=== PATIENT | female | born 1985 | race Caucasian/White ===

== ENCOUNTER 2020-11-08 11:05 | Outpatient (CLI) | payer OTHER ==
[2020-11-08 16:50] LABS: BILIRUBIN,URINE NEGATIVE (NEGATIVE); CLARITY,URINE CLEAR (CLEAR); GLUCOSE, URINE (UA) NEGATIVE (NEGATIVE); KETONES,URINE (UA) NEGATIVE (NEGATIVE); LEUKOCYTE ESTERASE, URINE NEGATIVE (NEGATIVE); NITRITE,URINE NEGATIVE (NEGATIVE); OCCULT BLOOD,URINE NEGATIVE (NEGATIVE); PH,URINE 5.5 PH (5.0-7.5); PROTEIN,URINE NEGATIVE (NEGATIVE); UROBILINOGEN,URINE 0.2 (NORMAL) E.U./dL (NORMAL)
[2020-11-08 17:22] LABS: BACTERIA,URINE Few /HPF (None Seen); RBC,URINE None Seen /HPF (0-5); SQUAMOUS EPITHELIAL CELL,UR FEW Squamous (<= Few); WBC,URINE 0-3 /HPF (0-5)
[2020-11-08 20:25] LABS: BACTERIAL VAGINOSIS DNA NEGATIVE (NEGATIVE); CANDIDA GLABRATA DNA NEGATIVE (NEGATIVE); CANDIDA GROUP DNA NEGATIVE (NEGATIVE); CANDIDA KRUSEI DNA NEGATIVE (NEGATIVE); TRICHOMONAS VAGINALIS DNA NEGATIVE (NEGATIVE)
== END 2020-11-08 11:06 | disposition home or self-care (01) ==
LOC: LAB 11:05
PROVIDERS: ATTEND Obstetrics & Gynecology
DX: R35.0 Frequency of micturition (principal); N89.8 Other specified noninflammatory disorders of vagina
CPT/HCPCS: 81001; 87086; 87661; 87801

== ENCOUNTER 2021-01-10 12:45 | Outpatient (CLI) | payer OTHER ==
[2021-01-10 13:56] LABS: HCT - HEMATOCRIT 34.8 % (37.0-47.0); HGB - HEMOGLOBIN 11.7 g/dL (12.0-16.0); MEAN CORPUSCULAR HEMOGLOBIN 29.1 pg (27.0-31.0); MEAN CORPUSCULAR HGB CONC 33.6 g/dL (32.0-36.0); MEAN CORPUSCULAR VOLUME 86.6 fL (81.0-99.0); MEAN PLATELET VOLUME 9.7 fL (7.9-10.8); RED BLOOD COUNT 4.02 10^6/uL (4.20-5.40); RED CELL DISTRIBUTION WIDTH 12.6 % (12.0-15.0); WHITE BLOOD COUNT 9.2 x10^3/uL (4.8-10.8)
== END 2021-01-10 12:46 | disposition home or self-care (01) ==
LOC: LAB 12:45
PROVIDERS: ATTEND Nurse Practitioner Obstetrics & Gynecology
DX: Z34.90 Encounter for supervision of normal pregnancy, unspecified, unspecified trimester (principal); Z36.89 Encounter for other specified antenatal screening
CPT/HCPCS: 36415; 82950; 85027

== ENCOUNTER 2021-01-15 08:01 | Outpatient (CLI) | payer OTHER ==
[2021-01-15 08:32] LABS: GTT GLUCOSE,FASTING 90 mg/dL (70-100)
== END 2021-01-15 08:02 | disposition home or self-care (01) ==
LOC: LAB 08:01
PROVIDERS: ATTEND Nurse Practitioner Obstetrics & Gynecology
DX: O99.810 Abnormal glucose complicating pregnancy (principal)
CPT/HCPCS: 36415; 82951; 82952

== ENCOUNTER 2021-02-07 08:00 | Outpatient (CLI) | payer OTHER ==
[2021-02-07 15:51] LABS: BILIRUBIN,URINE NEGATIVE (NEGATIVE); GLUCOSE, URINE (UA) NEGATIVE (NEGATIVE); KETONES,URINE (UA) NEGATIVE (NEGATIVE); LEUKOCYTE ESTERASE, URINE NEGATIVE (NEGATIVE); NITRITE,URINE NEGATIVE (NEGATIVE); OCCULT BLOOD,URINE NEGATIVE (NEGATIVE); PROTEIN,URINE NEGATIVE (NEGATIVE); UROBILINOGEN,URINE 0.2 (NORMAL) E.U./dL (NORMAL)
[2021-02-07 15:59] LABS: BACTERIA,URINE Rare /HPF (None Seen); CLARITY,URINE CLEAR (CLEAR); RBC,URINE 0-5 /HPF (0-5); SQUAMOUS EPITHELIAL CELL,UR FEW Squamous (<= Few); WBC,URINE 0-3 /HPF (0-5)
== END 2021-02-07 23:59 | disposition home or self-care (01) ==
LOC: LAB.WC 08:00
PROVIDERS: ATTEND Nurse Practitioner Obstetrics & Gynecology
DX: R35.0 Frequency of micturition (principal)
CPT/HCPCS: 81001; 87086

== ENCOUNTER 2021-02-14 09:56 | Outpatient (CLI) | payer OTHER ==
[2021-02-14 10:13] LABS: HCT - HEMATOCRIT 36.6 % (37.0-47.0); HGB - HEMOGLOBIN 12.7 g/dL (12.0-16.0); MEAN CORPUSCULAR HEMOGLOBIN 29.7 pg (27.0-31.0); MEAN CORPUSCULAR HGB CONC 34.7 g/dL (32.0-36.0); MEAN CORPUSCULAR VOLUME 85.5 fL (81.0-99.0); MEAN PLATELET VOLUME 10.2 fL (7.9-10.8); RED BLOOD COUNT 4.28 10^6/uL (4.20-5.40); RED CELL DISTRIBUTION WIDTH 12.9 % (12.0-15.0); WHITE BLOOD COUNT 8.7 x10^3/uL (4.8-10.8)
[2021-02-14 11:23] LABS: CREATININE,URINE 76.3 mg/dL; PROTEIN/CREATININE RATIO,URINE 0.1 (<=0.2)
== END 2021-02-14 09:57 | disposition home or self-care (01) ==
LOC: LAB 09:56
PROVIDERS: ATTEND Nurse Practitioner Obstetrics & Gynecology
DX: R51.9 Headache, unspecified (principal)
CPT/HCPCS: 36415; 82570; 84156; 85027

== ENCOUNTER 2021-03-12 08:00 | Outpatient (CLI) | payer OTHER | END 2021-03-12 23:59 | disposition home or self-care (01) | LOC: LAB.WC 08:00 | PROVIDERS: ATTEND Advanced Practice Midwife | DX: Z34.90 Encounter for supervision of normal pregnancy, unspecified, unspecified trimester (principal); Z36.85 Encounter for antenatal screening for Streptococcus B | CPT/HCPCS: 87797 ==

== ENCOUNTER 2021-03-18 15:03 | Inpatient (IN) | payer OTHER ==
[2021-03-18 15:39] LABS: BASOPHILS % (AUTO) 0.2 %; EOSINOPHILS # (AUTO) 0.1 10^3/uL (0.0-0.7); EOSINOPHILS % (AUTO) 0.5 %; HCT - HEMATOCRIT 39.2 % (37.0-47.0); HGB - HEMOGLOBIN 13.5 g/dL (12.0-16.0); LYMPHOCYTES # (AUTO) 2.7 10^3/uL (1.5-3.5); LYMPHOCYTES % (AUTO) 29.3 %; MEAN CORPUSCULAR HEMOGLOBIN 29.2 pg (27.0-31.0); MEAN CORPUSCULAR HGB CONC 34.4 g/dL (32.0-36.0); MEAN CORPUSCULAR VOLUME 84.7 fL (81.0-99.0); MONOCYTES # (AUTO) 0.6 10^3/uL (0.0-1.0); MONOCYTES % (AUTO) 6.9 %; NEUTROPHILS # (AUTO) 5.7 10^3/uL (1.5-6.6); NEUTROPHILS % (AUTO) 62.8 %; PLT - PLATELET COUNT 257 10^3/uL (130-450); RED BLOOD COUNT 4.63 10^6/uL (4.20-5.40); RED CELL DISTRIBUTION WIDTH 13.6 % (12.0-15.0); WHITE BLOOD COUNT 9.1 x10^3/uL (4.8-10.8)
[2021-03-18 16:05] LABS: CREATININE,URINE 122.9 mg/dL; PROTEIN/CREATININE RATIO,URINE 0.1 (<=0.2)
[2021-03-18 16:05] LABS: ALBUMIN 3.3 g/dL (3.2-5.5); ALBUMIN/GLOBULIN RATIO 0.8 (1.0-2.2); BILIRUBIN,TOTAL 0.2 mg/dL (0.2-1.0); CALCIUM 8.8 mg/dL (8.5-10.3); CREATININE 0.5 mg/dL (0.4-1.0); POTASSIUM 3.5 mmol/L (3.5-5.0); TOTAL PROTEIN 7.2 g/dL (6.7-8.2)
[2021-03-18] MEDS ORDERED: NIFEdipine 10 MG CAPSULE PO PRN (16:36)
[2021-03-18] MEDS ORDERED: TRANEXAMIC ACID IN NACL 1,000 MG/100 ML BAG IV PRN (16:36)
[2021-03-18] MEDS ORDERED: hydrALAZINE INJ 20 MG/ML VIAL IVP PRN ×2 (16:36)
[2021-03-18] MEDS ORDERED: METOCLOPRAMIDE 10 MG/2 ML VIAL IVP PRN (16:36)
[2021-03-18] MEDS ORDERED: miSOPROStoL 200 MCG TABLET BC PRN (16:36)
[2021-03-18] MEDS ORDERED: CARBOPROST TROMETHAMINE 250 MCG/ML AMP IM PRN (16:36)
[2021-03-18] MEDS ORDERED: ONDANSETRON 4 MG/2 ML VIAL IVP PRN (16:36)
[2021-03-18] MEDS ORDERED: LIDOCAINE-MPF 1% 30 ML VIAL ID PRN (16:36)
[2021-03-18] MEDS ORDERED: METHYLERGONOVINE 0.2 MG/ML VIAL IM PRN (16:36)
[2021-03-18] MEDS ORDERED: LABETALOL 20 MG/4 ML SYRINGE IVP PRN ×3 (16:36)
[2021-03-18] MEDS ORDERED: OXYTOCIN 10 UNIT/ML VIAL IM PRN (16:36)
[2021-03-18] MEDS ORDERED: SODIUM CHLORIDE FLUSH 0.9% 10 ML SYRINGE IVP PRN (16:36)
--- NOTE | 2021-03-18 16:47 | HISTORY & PHYSICAL EXAMINATION ---
Admit History - Visit Reason Visit Reason: Other (Gestational Hypertension with severe range blood pressures) - : 1 Parity: 0 Premature: 0 Ectopic: 0 : 0 Care: positive: Other ([facility]) Risk/History: positive: Other (Gestational Hypertension) Complications This : positive: None Smoking Status: Never smoker - Mother's Labs Mother's Blood Type: positive: B Mother's RH: positive: Positive GBS: positive: Group B Step Negative Rubella Status: positive: Non-immune - Other Maternal History Other Maternal History: -36yo at 37.5wks gestation who presents to Labor and Delivery for pre- induction cervical ripening secondary to new onset Gestational Hypertension with severe range blood pressures -Reports movement -Denies ctx/VB/LOF - care with [facility] which has been adequate - Complications *Gestational Hypertension with severe range pressures ---denies SAUCEDA, RUQ pain, or visual changes ---P:C ratio: 0.1 ---ALT/AST wnl ---CBC wnl -Dating Criteria LMP 04/03/2021 Initial U/S: @ 10.5wks gestation c/w LMP dating performed by [facility]. -OB Hx *G1: current -Medications * vitamin-daily -Allergies *NKDA -Medical History *Non contributory -Surgical History *Colposcopy 2009 *[place] Teeth Extraction -Family History *Non contributory -Social History *Non contributory - Labs, Immunizations, and Findings LMP 04/03/2021 Initial U/S: @ 10.5wks gestation c/w LMP dating performed by [facility]. SMA positive- partner's result pending, referred to [facility], notes pending. B pos/antibody negative Rubella NON-IMMUNE - MMR VZV: immune Genetic testing: [place] neg, CF neg, SMA positive (per pt, records being requested) Early screening U/S completed by [facility] @ 17wks: WNL. Anterior placenta, no previa. 3VC. EFW 97%. DESEAN WNL. - incomplete visualization due to early gestation. FAS - completed by [facility] - Detailed FAS with [facility] WNL. Anterior placenta, no preiva. DESEAN WNL. Size c/w dating. 3VC. Glucola 1hr 161 3hr pass 90 146,126,118 Influenza: recieved outside clinic TDAP 01/10/2021 GBS at 36.6 weeks- Negative HSV: denies in self and partner Breast pump Rx 01/10/2021 MOD: Anticipate ; It's a GIRL! Kim Kolby; wait and see - hoping to have unmedicated delivery; ; [employer] active duty pp contraception: POP's pap: 09/10/2020 neg - HPV neg (hx ASCUS paps) -SVE- closed/80%/-1/mod/mid -Vertex by Rojas -EFW by iggy's 6.5# - Physical Exam: Normocephalic, atraumatic Heart RRR w/o murmur Lungs clear and equal bilaterally Abdomen gravid, soft, nontender Edema- none Psych- wnl -FHTs per flowsheet -Assessment *36yo at 37.5wks gestation present for induction of labor secondary to new onset Gestational Hypertension with severe range blood pressures *Feliz Score 7- requires cervical ripening * Heart Tones- Category I -Plan *Admit to Inpatient *Cervical ripening with Misoprostol *Hypertensive protocol initiated *Monitoring- Continuous *Comfort measures available- position changes, whirlpool tub, fentanyl, and epidural per maternal preference *Diet/Activity- per maternal preference *Anticipate Review of Systems - All Other Systems All Other Systems: reports: Reviewed and negative Physical - Abdominal Exam Vital Signs: Temp Pulse Resp BP Pulse Ox 37.2 C 102 H 16 161/101 H 98 03/18/21 15:17 03/18/21 16:14 03/18/21 16:14 03/18/21 16:14 03/18/21 16:14 Contraction Frequency (min/apart): irregular Contraction Intensity: positive: Mild Uterine Resting Tone: positive: Soft - Monitoring Heart Rate Baseline: 135 Strip Review: positive: Category I (moderate variability, 15x15 accels, no decels) - Presentation Presentation: positive: Vertex - Vaginal Exam Membranes: positive: Membranes intact Dilation (in cm): 0 Effacement (%): 80 Station: positive: -1 Cervical Position: positive: Midposition Plan for Labor - Plan For Labor I expect patient to be DC'd or transferred within 96 hours.: Yes
[2021-03-18] MEDS: SODIUM CHLORIDE FLUSH 0.9% 10 ML SYRINGE IVP SCH ×2 (17:15→22:41)
[2021-03-18] MEDS: miSOPROStoL 100 MCG TABLET BC SCH ×2 (17:32→21:48)
[2021-03-18] MEDS: LACTATED RINGERS 1,000 ML IV SCH (17:34)
--- NOTE | 2021-03-18 20:01 | ANESTHESIA ---
Pre-Anesthesia VS, & Labs - Diagnosis active labor - Procedure labor epidural Vital Signs: Temp Pulse Resp BP Pulse Ox 37.1 C 95 18 144/92 H 98 03/18/21 17:43 03/18/21 17:43 03/18/21 17:43 03/18/21 17:43 03/18/21 17:22 Height: 5 ft 2.5 in Weight (kg): 78.018 kg Body Mass Index: 30.9 BMI Classification: Obese - NPO >8 hours - Is Patient ?: Yes - Lab Results Current Lab Results: Laboratory Tests 03/18/21 17:15: Blood Type B POSITIVE, Antibody Screen NEGATIVE 03/18/21 15:31: Blood Type Recheck B POSITIVE 03/18/21 15:31: Sodium 132 L, Potassium 3.5, Chloride 104, Carbon Dioxide 21, Anion Gap 7.0, BUN 11, Creatinine 0.5, Estimated GFR (MDRD) 140, Glucose 102 H, Calcium 8.8, Total Bilirubin 0.2, AST 35, ALT 49, Alkaline Phosphatase 163 H, Total Protein 7.2, Albumin 3.3, Globulin 3.9, Albumin/Globulin Ratio 0.8 L 03/18/21 15:31: WBC 9.1, RBC 4.63, Hgb 13.5, Hct 39.2, MCV 84.7, MCH 29.2, MCHC 34.4, RDW 13.6, Plt Count 257, MPV 11.0 H, Neut # (Auto) 5.7, Lymph # (Auto) 2.7, [place] # (Auto) 0.6, Eos # (Auto) 0.1, Baso # (Auto) 0.0, Absolute Nucleated RBC 0.00, Nucleated RBC % 0.0 Lab results reviewed: Yes Fish Bones: 03/18/21 15:31 03/18/21 15:31 Home Medications and Allergies Active Medications Carboprost Tromethamine (Carboprost Tromethamine 250 Mcg/Ml Amp) 250 mcg IM Q15M PRN PRN Reason: Step 4: Hemorrhage protocol Stop: 03/23/21 16:41 Fentanyl (Fentanyl 100 Mcg/2 Ml Vial) 50 mcg IVP Q1H PRN PRN Reason: PAIN Hydralazine HCl (Hydralazine Inj 20 Mg/Ml Vial) 5 - 20 mg IVP Q20M PRN; Protocol PRN Reason: SBP >160 or DBP >110 Hydralazine HCl (Hydralazine Inj 20 Mg/Ml Vial) 10 mg IVP .ONCE PRN; Protocol PRN Reason: Step 9 of Labetalol protocol Stop: 03/23/21 16:45 Lactated Ringer's (Lr) 1,000 mls @ 100 mls/hr IV .Q10H LILLIAN Last Admin: 03/18/21 17:34 Dose: Not Given Documented by: Oxytocin/Sodium Chloride (Pitocin/Sodium Chloride) 500 mls @ 999 mls/hr IV PRN PRN; Protocol PRN Reason: POST- HEMORR PREVENTION Stop: 03/23/21 16:41 Tranexamic Acid (Tranexamic 1,000 Mg/100ml-Nacl) 1,000 mg in 100 mls @ 600 mls/hr IV .ONCE PRN PRN Reason: EBL >1200mL and within 3hr Stop: 03/23/21 16:41 Labetalol HCl (Labetalol 20 Mg/4 Ml Syringe) 20 - 80 mg IVP Q10M PRN; Protocol PRN Reason: SBP >160 or DBP >110 Labetalol HCl (Labetalol 20 Mg/4 Ml Syringe) 20 mg IVP .ONCE PRN; Protocol PRN Reason: Step 9 of nifedipine protocol Stop: 03/23/21 16:45 Labetalol HCl (Labetalol 20 Mg/4 Ml Syringe) 40 mg IVP .ONCE PRN; Protocol PRN Reason: Step 9 of hydrALAZine protocol Stop: 03/23/21 16:45 Lidocaine HCl (Lidocaine-Mpf 1% 30 Ml Vial) 30 ml ID .ONCE PRN PRN Reason: PERINEAL REPAIR Stop: 03/23/21 16:41 Methylergonovine Maleate (Methylergonovine 0.2 Mg/Ml Vial) 0.2 mg IM .ONCE PRN PRN Reason: Step 2: Hemorrhage protocol Stop: 03/23/21 16:41 Metoclopramide HCl (Metoclopramide 10 Mg/2 Ml Vial) 10 mg IVP Q6H PRN PRN Reason: Nausea / Vomiting Misoprostol (Misoprostol 200 Mcg Tablet) 800 mcg BC .ONCE PRN PRN Reason: Step 3: Hemorrhage protocol Stop: 03/23/21 16:41 Misoprostol (Misoprostol 100 Mcg Tablet) 50 mcg BC Q4HR [facility] Last Admin: 03/18/21 17:32 Dose: 50 mcg Documented by: Nifedipine (Nifedipine 10 Mg Capsule) 10 - 20 mg PO Q20M PRN; Protocol PRN Reason: SBP >160 or DBP >110 Ondansetron HCl (Ondansetron 4 Mg/2 Ml Vial) 4 mg IVP Q4HR PRN PRN Reason: Nausea / Vomiting Oxytocin (Oxytocin 10 Unit/Ml Vial) 10 unit IM .ONCE PRN PRN Reason: Step one: If no IV access Stop: 03/23/21 16:41 Sodium Chloride (Sodium Chloride Flush 0.9% 10 Ml Syringe) 10 ml IVP 0100,0900,1700 [facility] Last Admin: 03/18/21 17:15 Dose: 10 ml Documented by: Sodium Chloride (Sodium Chloride Flush 0.9% 10 Ml Syringe) 10 ml IVP PRN PRN PRN Reason: NEEDED PER PROVIDER ORDERS Anes History & Medical History - Anesthetic History Anesthesia Complications: reports: No previous complications Family history of Anesthesia Complications: Denies Family history of Malignant Hyperthermia: Denies - Medical History Smoking Status: Never smoker - Obstetrical History : 1 Parity: 0 Events: reports: Other (Gestational Hypertension) Complications: reports: None Exam General: Alert, Oriented x3, Cooperative, No acute distress Dental: WNL Mouth Openin Fingerbreadth Neck Mobility: Normal Mallampati classification: I Respiratory: Lungs clear, Normal breath sounds, No respiratory distress, No accessory muscle use Cardiovascular: Regular rate, Normal S1, Normal S2, No murmurs Plan Anesthesia Type: Epidural Consent for Procedure(s) Verified and Reviewed: Yes Code Status: Attempt Resuscitation ASA classification: 2-Mild systemic disease Is this case an emergency?: No
[2021-03-18] MEDS ORDERED: ZOLPIDEM 5 MG TABLET PO PRN (22:05)
[2021-03-19] MEDS: miSOPROStoL 100 MCG TABLET BC SCH ×5 (01:57→17:56)
[2021-03-19] MEDS: LACTATED RINGERS 1,000 ML IV SCH ×2 (08:05→16:17)
--- NOTE | 2021-03-19 12:20 | PROVIDER PROGRESS NOTE ---
Labor Progress Note - Uterine Monitoring Uterine Monitoring Mode: positive: External toco Contraction Frequency (min/apart): 1-4 Contraction Intensity: positive: Mild to moderate Uterine Resting Tone: positive: Soft - Monitoring Monitor Mode: positive: External ultrasound Heart Rate Baseline: 140 Heart Rate Variability: positive: Moderate (6-25 bmp) (periods of minimal noted) Accelerations: positive: Present, 15x15 Decelerations: positive: None Strip Review: positive: Category I - Vaginal Exam Dilation (in cm): 1.5 Effacement (%): 70 Station: -1 Cervical Position: Midposition - Labor Progress Note Labor Progress Note/Additional Text: S: Dalia reports minimal sleep overnight. She is breathing with contractions, but reports them as acceptable. O: FHT per flowsheet Utx per flowsheet s/p Miso dose #3 No further pressures in severe range since admit Afebrile SVE: 1.5/70/-1/mid/moderate A: 36yo at 37.6wks gestation- IOL r/t GHTN Early labor, modest cervical change Concepcion too frequently for misoprostol FHT currently reassuring P: Anticipate Continous monitoring IV hydration for 250mL for possible uterine irritability MISO if appropriate, otherwise reevaluate around 1030 for possible brownlee placement Discussed plan of care with patient Comfort measures per pt preference
--- NOTE | 2021-03-19 12:24 | PROVIDER PROGRESS NOTE ---
Labor Progress Note - Uterine Monitoring Uterine Monitoring Mode: positive: External toco Contraction Frequency (min/apart): 2-4 Contraction Intensity: positive: Moderate Uterine Resting Tone: positive: Soft - Monitoring Monitor Mode: positive: External ultrasound Heart Rate Baseline: 145 Heart Rate Variability: positive: Moderate (6-25 bmp) (periods of minimal variability noted, occassional deceleration) Accelerations: positive: Present, 15x15 Decelerations: positive: None Strip Review: positive: Category I - Vaginal Exam Dilation (in cm): 1.5 Effacement (%): 70 Station: -1 Cervical Position: Midposition - Labor Progress Note Labor Progress Note/Additional Text: S: Dalia is struggling with contractions. She is tearful and cites lack of sleep. She is using NOx and whirlpool tub to help cope with ctx O: 1115: SVE unchanged Bustamante balloon placed with 60cc uterine and 60cc vaginal -tolerated placement well, however labor pains have intensified shortly thereafter BPs not in severe range A: 36yo at 37.6wks gestation IOL r/t GHTN- stable P: Anticipate Bustamante balloon in place for 12h, or sooner PRN OK for intermittent monitoring with Cat I strip per protocol Comfort measures per pt preference
[2021-03-19] MEDS: fentaNYL 100 MCG/2 ML VIAL IVP PRN (13:39)
[2021-03-19] MEDS: SODIUM CHLORIDE FLUSH 0.9% 10 ML SYRINGE IVP SCH ×2 (16:17→17:56)
[2021-03-19] MEDS ORDERED: OXYTOCIN/SODIUM CHLORIDE 500 ML IV SCH (20:30)
[2021-03-20] MEDS: fentaNYL 100 MCG/2 ML VIAL IVP PRN (01:47)
[2021-03-20] MEDS ORDERED: ROPIVACAINE 0.2% 200 MG/100 ML BAG EP ONE (03:08)
[2021-03-20] MEDS ORDERED: ROPIVACAINE 0.2% 200 MG/100 ML BAG EP PRN (03:52)
[2021-03-20] MEDS ORDERED: NALBUPHINE 10 MG/ML AMP IVP PRN (03:52)
[2021-03-20] MEDS ORDERED: diphenhydrAMINE INJ 50 MG/ML VIAL IVP PRN (03:52)
[2021-03-20] MEDS ORDERED: METOCLOPRAMIDE 10 MG/2 ML VIAL IVP PRN (03:52)
[2021-03-20] MEDS ORDERED: NALOXONE 0.4 MG/ML VIAL IVP PRN (03:52)
[2021-03-20] MEDS ORDERED: ePHEDrine 50 MG/ML VIAL IVP PRN (03:52)
[2021-03-20] MEDS ORDERED: ONDANSETRON 4 MG/2 ML VIAL IVP PRN (03:52)
--- NOTE | 2021-03-20 07:59 | PROVIDER PROGRESS NOTE ---
Labor Progress Note - Uterine Monitoring Uterine Monitoring Mode: positive: External toco Contraction Frequency (min/apart): 2-3 Contraction Intensity: positive: Moderate to strong Uterine Resting Tone: positive: Soft - Monitoring Monitor Mode: positive: External ultrasound Heart Rate Baseline: 150 Heart Rate Variability: positive: Moderate (6-25 bmp) Accelerations: positive: Present, 15x15 Decelerations: positive: None Strip Review: positive: Category I - Labor Progress Note Labor Progress Note/Additional Text: S: Huseyin is sitting in the throne position in bed. She moves her own legs to r eposition, and feels the epidural is very effective for her pain management. She reports struggling emotionally with finally getting the epidural and is accepting of it now. 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 FOB supportive on the couch, resting. She is feeling some rectal pressure during contractions, without urge to push O: Bustamante balloon spontaneously expulsed at approx 2000 Pitocin started for labor augmentation Epidural placed at 0330 SROM during procedure at 0335 for thick particulate mec Decels noted with BP drop after epidural bolus, ephedrine effective for BP normalization Provider called to unit and decels had resolved Pitocin restarted after Cat I strip, currently at 8mU/min SVE at 0406: 7/90/+1 BPs- none in severe range since admit A: 36yo at 38.0 wks in active labor Gestational Hypertension- stable Uterine contractions- adequate FHR- reassuring P: Anticipate Cont Monitoring Continue with pitocin augmentation, per protocol Allow time for labor progression after pitocin restarted, will recheck in two hours
[2021-03-20] MEDS: ACETAMINOPHEN 500 MG TABLET PO PRN ×2 (08:30→16:52)
[2021-03-20] MEDS: OXYTOCIN/SODIUM CHLORIDE 500 ML IV PRN ×2 (12:10→18:00)
[2021-03-20] MEDS ORDERED: WITCH HAZEL/GLYCERIN 1 PAD TOP PRN (12:29)
[2021-03-20] MEDS ORDERED: HYDROCORTISONE 1% CREAM 28 GM TUBE PR PRN (12:29)
--- NOTE | 2021-03-20 12:29 | DELIVERY NOTE ---
Delivery Note - Labor Labor: positive: Augmented by oxytocin - Delivery Method Delivery Method: positive: Spontaneous vaginal delivery - Presentation Presentation: positive: Vertex, KEVIN - left occiput anterior - Nuchal Cord Nuchal Cord: positive: None - Amniotic Fluid Description Amniotic Fluid Description: positive: Particulate meconium - Episiotomy Type Episiotomy Type: positive: None - Laceration Laceration: positive: 1st degree, Labial, Perineal - Suture Suture Type: positive: Vicryl Suture Size: positive: 3-0 - Delivery Outcome Delivery Outcome: positive: Livebirth - : positive: Placed in direct skin contact with mother, Stimulated, [place] used sex: positive: Female : 8 : 9 - Delivery Comments (Free Text/Narrative) Delivery Comments (Free Text/Narrative): Note: Labor: This 36 year old, , @37.5wks gestation by 10.5 week Ultrasound, confirmed by LMP, presented to Labor and Delivery in the afternoon of 03/18/2021, after having high blood pressure readings in the office. Labs were within normal limits, but an induction was indicated. Cervix was closed/80%/-1 and vertex. FHR pattern demonstrated 135 baseline in a Category I pattern. Her cervix was ripened with misoprostol, then a brownlee balloon was inserted for cervical ripening and dilation. Pitocin was administered for augmentation of labor. Epidural placed upon maternal request. SROM occurred @ 0335 and amount and color of fluid were noted to be moderate and with heavy meconium staining. She progressed to complete and began pushing on 03/20/2021 at 1116. : Normal of a 2940gm female infant, named Kim Martin, on 03/20/2021 @ 1205. Nuchal not present and FOB guided baby from the delivery of shoulders, to maternal abdomen. The was placed on maternal abdomen, stimulated, dried and placed skin to skin. Apgars 8 at one minute and 9 at five minutes. The umbilical cord was allowed to stop pulsating at which time it was doubly clamped by CNM and cut by FOB. Pitocin administered via IV for hemostasis. Fundal massage and gentle cord traction applied for active third stage management. Cord blood was obtained. Placenta delivered spontaneously and intact at 1212. Three vessel cord. EBL 200mL. Fourth Stage: Uterine fundus firm and without excessive bleeding. The perineum, vagina, and cervix were inspected and found to have sustained a superficial left labial laceration and a small first degree perineal laceration. Both lacerations were repaired with 3-0 vicryl under sterile conditions in standard fashion. Vaginal examination following repair was done. Tissues well approximated. initiated. Family bonding well. Both mother and baby are in stable condition.
[2021-03-20] MEDS: DOCUSATE SODIUM 100 MG CAPSULE PO PRN (12:57)
[2021-03-20] MEDS: IBUPROFEN 600 MG TABLET PO SCH ×2 (12:57→19:34)
[2021-03-21] MEDS: IBUPROFEN 600 MG TABLET PO SCH ×3 (01:13→17:53)
[2021-03-21] MEDS: ACETAMINOPHEN 500 MG TABLET PO PRN ×3 (01:13→21:43)
[2021-03-21] MEDS ORDERED: MEASLES,MUMPS & RUBELLA VACC 0.5 ML VIAL SUBQ ONE (06:00)
--- NOTE | 2021-03-21 07:43 | PROVIDER PROGRESS NOTE ---
Subjective - Prog Note Date Prog Note Date: 03/21/21 Prog Note Time: 06:45 - Subjective Pt reports feeling: Improved Subjective: S: Dalia is standing in her room, holding baby and settling in to bed to soothe her. FOB is supportive at bedside. She reports as going well, although baby seemed to be "fighting her" a bit more last night. She is reassured that baby is peeing and pooping, and calm after feeds. PO medications are effective for pain control. She had a couple episodes of bleeding and clots shortly after delivery when getting up to urinate yesterday evening. She received an extra bag of pitocin. Bleeding this morning is significantly decreased. O: Fundus firm Lochia rubra BPs - none in severe range. Highest 150s/90s A: 36yo s/p on 03/20/2021 on day 1 Gestational Hypertension- stable Normal recovery P: Continue routine care Objective - Vital Signs/Intake & Output Vital Signs: Vital Signs x48h Temp Pulse Resp BP BP Pulse Ox 03/21/21 03:50 36.7 C 90 18 141/93 H 03/21/21 00:15 36.8 C 90 16 131/81 H 99 Intake & Output: Intake & Output 03/18/21 03/19/21 03/20/21 03/21/21 23:59 23:59 23:59 23:59 Intake Total 650 2289.899 500 Output Total 1750 Balance 650 539.899 500 - Lab Results Fish Bones: 03/18/21 15:31 03/18/21 15:31
[2021-03-21] MEDS: DOCUSATE SODIUM 100 MG CAPSULE PO PRN (08:14)
[2021-03-21 12:54] LABS: BASOPHILS % (AUTO) 0.3 %; EOSINOPHILS # (AUTO) 0.1 10^3/uL (0.0-0.7); EOSINOPHILS % (AUTO) 0.4 %; HCT - HEMATOCRIT 31.1 % (37.0-47.0); HGB - HEMOGLOBIN 10.7 g/dL (12.0-16.0); LYMPHOCYTES # (AUTO) 3.2 10^3/uL (1.5-3.5); LYMPHOCYTES % (AUTO) 27.7 %; MEAN CORPUSCULAR HEMOGLOBIN 29.8 pg (27.0-31.0); MEAN CORPUSCULAR HGB CONC 34.4 g/dL (32.0-36.0); MEAN CORPUSCULAR VOLUME 86.6 fL (81.0-99.0); MEAN PLATELET VOLUME 10.2 fL (7.9-10.8); MONOCYTES # (AUTO) 0.5 10^3/uL (0.0-1.0); MONOCYTES % (AUTO) 4.5 %; NEUTROPHILS # (AUTO) 7.6 10^3/uL (1.5-6.6); NEUTROPHILS % (AUTO) 66.6 %; PLT - PLATELET COUNT 200 10^3/uL (130-450); RED BLOOD COUNT 3.59 10^6/uL (4.20-5.40); RED CELL DISTRIBUTION WIDTH 13.9 % (12.0-15.0); WHITE BLOOD COUNT 11.4 x10^3/uL (4.8-10.8)
[2021-03-22] MEDS: IBUPROFEN 600 MG TABLET PO SCH ×2 (04:22→10:10)
[2021-03-22] MEDS: ACETAMINOPHEN 500 MG TABLET PO PRN (07:12)
[2021-03-22] MEDS: DOCUSATE SODIUM 100 MG CAPSULE PO PRN (10:10)
--- NOTE | 2021-03-22 13:12 | Discharge Plan ---
Discharge Plan Problem Reviewed?: Yes Disposition: Home, Self Care Condition: Good Prescriptions: Docusate Sodium 100Mg Capsule [Colace 100Mg Capsule] 100 - 200 mg PO BID PRN #60 cap PRN Reason: Constipation Ibuprofen [Motrin] 600 mg PO Q6H PRN #60 tab PRN Reason: Pain Diet: Regular Activity Restrictions: Additional Comments (Nothing in the vagina for 6 weeks: No intercourse, tampons, douching Call for: -Fever greater than 100.5 - Pain that does not improve with pain medication -Heavy bleeding in which you are soaking a pad an hour for 2 hours in a row No tub baths or hot tubs for 4 weeks) Shower Restrictions: No (No tub baths or hot tubs for 4 weeks) Assessment: Call for: 1) headaches that do not improve with pain medications 2) Sparkly lights or back spots in your field of vision 3) Pain in the upper right part of your abdomen 4) Blood pressures in which the SBP (top number) is 160 or greater or the DBP (bottom number) is 110 or greater Additional Instructions or Follow Up instructions: Ibuprofen 600 mg by mouth every 6 hours as needed for pain Acetaminophen 500-1000 mg by mouth every 8 hours as needed for pain Docusate 100-200 mg by mouth twice a day as needed for constipation No Smoking: If you smoke, Please STOP! Call for help. Follow-up with: Nga Coto CNM, [facility] [Primary Care Provider] -
--- NOTE | 2021-03-22 13:18 | PROVIDER PROGRESS NOTE ---
Subjective - Prog Note Date Prog Note Date: 03/22/21 Prog Note Time: 13:16 - Subjective Subjective: 36yo s/p on 03/20/2021 on day 2 Blood pressures have been in normal range since 7 pm yesterday evening and mild range for more than 24 hours. No PIH symptoms Patient is up and ambulating, tolerating po, and voiding. Pain is well managed with pain medications. BF going well. BM complete without issues. Feels ready for DC. Objective - Vital Signs/Intake & Output Reviewed Vital Signs: Yes Vital Signs: Vital Signs x48h Temp Pulse Resp BP Pulse Ox 03/22/21 07:18 97.7 F 80 18 135/83 H 100 Intake & Output: Intake & Output 03/19/21 03/20/21 03/21/21 03/22/21 23:59 23:59 23:59 23:59 Intake Total 650 2750.000 500 Output Total 1750 Balance 650 1000.000 500 - Objective General Appearance: positive: No acute distress Respiratory: positive: No respiratory distress, Breath sounds nml Cardiovascular: positive: Regular rate & rhythm Abdomen: positive: Other (S&NT/ND. FF below umbi) Skin: positive: Color nml, Warm, Dry Extremities: positive: Non-tender, Nml appearance, No pedal edema Neurologic/Psychiatric: positive: Oriented x3 - Lab Results Fish Bones: 03/21/21 12:47 03/18/21 15:31 Other Labs: Lab Results x24hrs 03/21/21 Range/Units 12:47 Lactate Dehydrogenase 169 (91-225) IU/L Assessment/Plan - Problem List (2) Vaginal delivery Impression: PPD#2: Meeting goals for discharge Routine DC instructions given Reviewed warning signs for PIH Has Fu in 3 days for BP check
[2021-03-22] MEDS ORDERED: MEASLES,MUMPS & RUBELLA VACC 0.5 ML VIAL SUBQ ONE (13:19)
--- NOTE | 2021-03-22 13:20 | DISCHARGE SUMMARY ---
Discharge Summary Admit Date: 03/18/21 Discharge Date: 03/22/21 Discharging Provider: Milagros Condition at Discharge: Good Discharge Disposition: 01 Home, Self Care - DIAGNOSES Admission Diagnoses: IUP at 37+5 wga Gestational hypertension with severe range pressures Discharge Diagnoses with Status of Each Condition: Same and delivery of term gestation - HPI History of Present Illness: -36yo at 37.5wks gestation who presented to Labor and Delivery for pre- induction cervical ripening secondary to new onset Gestational Hypertension with severe range blood pressures - care with [facility] which has been adequate - Complications *Gestational Hypertension with severe range pressures ---denies SAUCEDA, RUQ pain, or visual changes ---P:C ratio: 0.1 ---ALT/AST wnl ---CBC wnl - HOSPITAL COURSE Hospital Course: This 36 year old, , @37.5wks gestation by 10.5 week Ultrasound, confirmed by LMP, presented to Labor and Delivery in the afternoon of 03/18/2021, after having high blood pressure readings in the office. Labs were within normal limits, but an induction was indicated. Cervix was closed/80%/-1 and vertex. FHR pattern demonstrated 135 baseline in a Category I pattern. Her cervix was ripened with misoprostol, then a brownlee balloon was inserted for cervical ripening and dilation. Pitocin was administered for augmentation of labor. Epidural placed upon maternal request. SROM occurred @ 0335 and amount and color of fluid were noted to be moderate and with heavy meconium staining. She progressed to complete and began pushing on 03/20/2021 at 1116. : Normal of a 2940gm female , named Kim Martin, on 03/20/2021 @ 1205. Nuchal not present and FOB guided baby from the delivery of shoulders, to maternal abdomen. The was placed on maternal abdomen, stimulated, dried and placed skin to skin. Apgars 8 at one minute and 9 at five minutes. The umbilical cord was allowed to stop pulsating at which time it was doubly clamped by CNM and cut by FOB. Pitocin administered via IV for hemostasis. Fundal massage and gentle cord traction applied for active third stage management. Cord blood was obtained. Placenta delivered spontaneously and intact at 1212. Three vessel cord. EBL 200mL. Fourth Stage: Uterine fundus firm and without excessive bleeding. The perineum, vagina, and cervix were inspected and found to have sustained a superficial left labial laceration and a small first degree perineal laceration. Both lacerations were repaired with 3-0 vicryl under sterile conditions in standard fashion. Vaginal examination following repair was done. Tissues well approximated. initiated. Family bonding well. Both mother and baby are in stable condition. Blood pressures remained in mild to normal range during course. She was monitored for 48 hours. Meeting goals for discharge by PPD#2. MMR vaccine ordered to be given prior to discharge for rubella non-immune status. Discharged to home with fu in 3 days. - ALLERGIES Allergies/Adverse Reactions: Allergies Allergy/AdvReac Type Severity Reaction Status Date / Time No Known Drug Allergies Allergy Verified 03/20/21 02:10 - MEDICATIONS Home Medications: Ambulatory Orders Medication Instructions Recorded Confirmed Docusate Sodium 100Mg Capsule 100 - 200 mg PO BID PRN #60 cap 03/22/21 [Colace 100Mg Capsule] Ibuprofen [Motrin] 600 mg PO Q6H PRN #60 tab 03/22/21 - LABS Result Diagrams: 03/21/21 12:47 03/18/21 15:31 - FOLLOW UP Follow Up: In 3 days with CARL Sánchez - TIME SPENT Time Spent in Discharge (Minutes): 30
[2021-03-22 13:41] VITALS: BP 146/86
== END 2021-03-22 16:00 | disposition home or self-care (01) | DRG 807 ==
LOC: WFO 15:03 → FBP 15:12 → WFO 16:35 → FBP 16:36
PROVIDERS: ADMIT Advanced Practice Midwife; ATTEND Obstetrics & Gynecology
PROC: 0U7C7ZZ Dilation of Cervix, Via Natural or Artificial Opening (ICD-10-PCS; 2021-03-19)
PROC: 10E0XZZ Delivery of Products of Conception, External Approach (ICD-10-PCS; principal; 2021-03-20)
PROC: 0HQ9XZZ Repair Perineum Skin, External Approach (ICD-10-PCS; 2021-03-20)
DX: O13.4 Gestational [pregnancy-induced] hypertension without significant proteinuria, complicating childbirth (principal); Z37.0 Single live birth; O77.0 Labor and delivery complicated by meconium in amniotic fluid; O70.0 First degree perineal laceration during delivery; O72.2 Delayed and secondary postpartum hemorrhage; Z3A.37 37 weeks gestation of pregnancy; Z20.822 Contact with and (suspected) exposure to COVID-19
CPT/HCPCS: 36415; 80053; 82570; 83615; 84156; 84450; 84550; 85025; 85384; 86850; 86900; 86901; 87635; 99215; A9270; J7120; 59025

== ENCOUNTER 2021-10-06 08:00 | Outpatient (CLI) | payer OTHER | END 2021-10-06 23:59 | LOC: LAB.N 08:00 | PROVIDERS: ATTEND Family Medicine | DX: J02.9 Acute pharyngitis, unspecified (principal) | CPT/HCPCS: 87070 ==